=== PATIENT | female | born 1995 | race Hispanic/Latino ===

== ENCOUNTER 2018-09-11 06:34 | Inpatient (IN) | payer OTHER ==
[2018-09-11] VITALS (22 sets, daily range): BP systolic 120–163; BP diastolic 64–94
[~2018-09-11] VITALS: Ht 157.5 cm; Wt 121.6 kg
[2018-09-11] MEDS ORDERED: OXYTOCIN 30 UNITS IN 0.9% NaCl 500ML IV BAG (J2590) As Ordered ONE (06:59)
[2018-09-11] MEDS ORDERED: LR 1,000 ML IV SCH ×2 (07:27→09:48)
[2018-09-11] MEDS ORDERED: ZANT150T40 PO (07:28)
[2018-09-11] MEDS ORDERED: LR 1,000 ML IV ONE (07:30)
--- NOTE | 2018-09-11 07:42 | HPEPDOC ---
Obstetrical History & Physical General Date of Admission Sep 11, 2018 at 06:34 History of Present Illness +CTXNs. -VB/LOF, +GFM Chief Complaint: Contractions, term Information Provided By: Patient Age: 24 : 2 Term: 1 Livin Care Care: Good Care Dating Final EDC: Sep 17, 2018 Final EDC by: 1st trimester () Past Medical History Past Obstetrical History : Past Obstetrical History: Multigravida Gestation: 40 Type of Delivery: Spontaneous Vaginal Del. 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 Past Medical History Medical History Denies Surgical History: Other (axillary surgery) Family History Significant Family History: No pertinent family hx Social History Marital Status: Family situation: Spouse/partner home Psychosocial History: No pertinent psych hx * Smoker: non-smoker Alcohol: Denies Drugs: denies Abuse Violence Screening Have you been hit/kicked/slapp: No Have you been sexually assault: No Imunizations Tdap status: current Influenza Status: current Allergies Coded Allergies: Penicillins (Verified Allergy, Severe, hives, 09/11/18) Medications Miscellaneous Medications Ranitidine Hcl (Zantac) 150 Mg Tablet, 1 TAB PO Physical Examination Physical Examination GENERAL: Alert and oriented times three. BREAST: . ABDOMEN: Gravid and non-tender to touch. FETUS: Is vertex (VTX) by sterile vaginal examination (SVE), fetus is vertex (VTX) by Reji. HEART RATE: Regular rate and rhythm. LUNGS: Clear to auscultation (CTA). EXTREMITIES: No edema. No clonus. Deep tendon reflexes (DTRs) + . Laboratory Data 24H LABS Laboratory Tests 2 09/11/18 06:40: Serology Scanned Report Hepatitis B Testing Urine Culture: No Growth Pertinent Laboratoy Data Blood Type: O+ RBC Antibody Screen: Negative HIV: Negative Hepatitis B: Negative Hepatitis C: Negative Rapid Plasma Reagin: Nonreactive Rubella: Immune Varicella: Immune Chlamydia/Gonorrhea: Negative Group B Streptococcus: Negative Anatomy Ultrasound Placenta Location: Right Lateral Normal Anatomy: Yes Placenta Previa: No Estimated Weight (grams): 3326 Steroid Therapy Steroid Therapy: No Vaginal Examination Dilation: 7 cm Effacement: 90% Station: +1 Cervical Consistency: Soft Presentation: Cephalic presentation Assessment Variability: Moderate Accelerations: Positive Decelerations: None Tocometer Contractions: Yes Frequency: regular Strength: palpated as strong Assessment/Plan Assessment Pt is a 23-year-old (G)2para (P)1001 at 39 weeks by a 1st trimester ultrasound. Presents to Labor and Delivery (L&D) in active labor. Plan Admit and orient. 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 Diet: clears. Group B Streptococcus (GBS) negative. Labs and intravenous (IV) per unit protocol. Counseled on Pitocin and induction of labor (IOL). Lactated Ringers (LR): Bolus 1000 mL, then at 125 mL/hr. Anticipate normal spontaneous delivery (). C-S as appropriate. ELEANOR REED MD Sep 11, 2018 07:33
[2018-09-11] MEDS ORDERED: FENTANYL 2MCG/ML ROPIVACAINE 0.2% IN 0.9% NACL 100ML IVBAG As Ordered ONE (07:44)
[2018-09-11 07:49] LABS: HEMATOCRIT 33.9 % (36.0-47.0); MEAN CORPUSCULAR HEMOGLOBIN 28.5 pg (27.0-33.0); MEAN CORPUSCULAR HGB CONC 32.4 g/dl (32.0-36.5); MEAN CORPUSCULAR VOLUME 87.8 fl (80.0-96.0); PLATELET COUNT, AUTOMATED 340 10^3/uL (150-450); RED BLOOD COUNT 3.86 10^6/uL (4.00-5.40); WHITE BLOOD COUNT 17.7 10^3/uL (4.0-10.0)
[2018-09-11] MEDS ORDERED: diphenhydrAMINE INJ 50MG/ML VIAL (J1200) IV PRN (08:00)
[2018-09-11] MEDS ORDERED: EPIDURAL/PCA KEYS XX PRN (08:00)
[2018-09-11] MEDS ORDERED: NALOXONE INJ 0.4 MG/1 ML VIAL (J2310) IV PRN (08:00)
[2018-09-11] MEDS ORDERED: EPIDURAL COMMENT XX SCH (08:00)
[2018-09-11] MEDS ORDERED: LACTATED RINGER'S 1000 ML IV PRN (08:00)
[2018-09-11] MEDS ORDERED: FENTANYL/ROPIVACAINE/NACL BAG 100 ML EPIDURAL SCH (08:00)
[2018-09-11] MEDS ORDERED: ePHEDrine SULFATE 25 MG/5 ML(5MG/ML) SYRINGE IV PRN (08:00)
[2018-09-11] MEDS ORDERED: ONDANSETRON 4MG/2ML VIAL (J2405) IV PRN (08:00)
[2018-09-11] MEDS ORDERED: REFRIGERATOR IV KEYS XX PRN (08:00)
[2018-09-11] MEDS: PRENATAL VITAMINS CHEWABLE TABLET PO SCH (09:00)
[2018-09-11] MEDS ORDERED: OXYTOCIN DRIP 30 UNITS in APPROPRIATE DILUENT 1 EA IV SCH (09:48)
[2018-09-11] MEDS ORDERED: DOCUSATE SODIUM 100 MG CAP PO PRN (10:00)
[2018-09-11] MEDS ORDERED: MEASLES,MUMPS,RUBELLA VACCINE INJ (MMR-II) (90707) SC SCH (10:00)
[2018-09-11] MEDS ORDERED: IBUPROFEN 600 MG TAB PO PRN (10:00)
[2018-09-11] MEDS ORDERED: ACETAMINOPHEN 500 MG TAB PO PRN (10:00)
[2018-09-11] MEDS ORDERED: ACETAMINOPHEN TAB 650MG DOSE (2X325MG) PO PRN (10:00)
[2018-09-11] MEDS ORDERED: IBUPROFEN 800 MG TAB PO PRN (10:00)
--- NOTE | 2018-09-11 10:03 | DNPDOC ---
[facility] Delivery Note Delivery Note DATE OF DELIVERY: 11 September 2017 PREDELIVERY DIAGNOSIS: 39+1wks gestation and admitted in active labor. POST DELIVERY DIAGNOSIS: Delivered. PROCEDURE: Uncomplicated , intact, placenta intact. 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 DELIVERY SUMMARY: Called to room for pt feeling rectal pressure and urge to push. Fetus noted to have category II FHT via FSE d/t consistent variables with contractions; moderate variaiblity. Dr. Powell on standby d/t risk of shoulder dystocia. Exam revealed C/C/+2. Pt prepped for imminent delivery. Upon pushing, head crowned and FSE removed; head delivered ANUPAMA and restituted to LOT. Nuchal cord x1, loose, but unable to reduce at perineum. Pt repositioned to supine to allow pelvis to further open, Right anterior shoulder delivered with ease, followed by left posterior shoulder, then remainder of corpus delivered, nuchal cord reduced via somersault, and placed on maternal abdomen where he was dried and stimulated; strong, lusty cry. Once cord stopped pulsing, clamped x2 and cut by FOB. Cord blood collected for type and rosa. Placenta delivered spontaneously and appeared intact, 3VC. Pitocin bolus started; fundus firm; EBL 200mL. Upon inspection of perineum, vagina and cervix, all intact. Family unit bonding well; anticipate uncomplicated PP course. Patient is a 23year-old 2 now para 2001 who was admitted to labor and delivery for active labor on [id number], no s/p uncomplicated . CHANEL PURVIS CNM Sep 11, 2018 10:03
[2018-09-11 11:14] LABS: ALT/SGPT 43 U/L (12-78); BILIRUBIN,TOTAL 0.8 MG/DL (0.2-1.0); CREATININE FOR GFR 0.71 MG/DL (0.55-1.30); GLOMERULAR FILTRATION RATE > 60.0 (>60); LDH LACTATE DEHYDROGENASE 205 U/L (84-246)
[2018-09-12 05:47] VITALS: BP 122/69
--- NOTE | 2018-09-12 07:31 | NUR ---
PPD#1 S: Doing well w/o complaints. +voids, + ambulation, pain well controlled. O: vss, AF gen: well appearing, NAD ab: soft, nttp, ff ext: neg calf tenderness A/P: PPD#1 s/p - recovering in stable condition -continue routine -discharge plans for tomorrow Delores Stubbs MD
[2018-09-12] MEDS: PRENATAL VITAMINS CHEWABLE TABLET PO SCH (09:00)
[2018-09-12] MEDS ORDERED: IBUP80TA PO (09:37)
[2018-09-12] MEDS ORDERED: ACET1TAB55 PO (09:37)
--- NOTE | 2018-09-12 09:40 | DS.PDOC ---
Discharge Summary General Date of Admission Sep 11, 2018 at 06:34 Date of Discharge September 12, 2018 Discharge Summary HOSPITAL COURSE: Ms. Brewster is a 23 yo G2 now P2 who underwent an uncomplicated on 11Sep2018 after being admitted for active labor. Her course has been unremarkable. On her day of discharge she was meeting all appropriate discharge criteria. She was ambulating, voiding, tolerating a regular diet, and had minimal lochia. DISCHARGE MEDICATIONS: Please see below. ALLERGIES: Please see below. PHYSICAL EXAMINATION ON DISCHARGE: VITAL SIGNS: Please see below. GENERAL: AAOX3, pleasant and conversant, NAD ABDOMINAL EXAMINATION: Fundus firm at U-2. No fundal tenderness EXTREMITIES: No edema PSYCHIATRIC EXAMINATION: Affect appropriate LABORATORY DATA: Please see below. ACTIVITY: Pelvic rest for 6 weeks. DIET: Regular DISCHARGE PLAN: Discharge home DISPOSITION: Discharge home on 12Sep2018. DISCHARGE INSTRUCTIONS: 1. Pelvic rest for 6 weeks ITEMS TO FOLLOWUP ON ON OUTPATIENT: 1. appt in 6 weeks DISCHARGE CONDITION: Stable. TIME SPENT ON DISCHARGE: Greater than 20 minutes. Isabel Phan DO Vital Signs/I&Os Vital Signs Date Time Temp Pulse Resp B/P (MAP) Pulse Ox O2 Delivery O2 Flow Rate FiO2 09/12/18 05:47 98.1 95 18 122/69 (86) I&O- Last 24 Hours up to 6 AM 09/12/18 05:59 Intake Total 1000 ml Output Total 1100 ml Balance -100 ml Discharge Medications Scheduled PRN Acetaminophen (Acetaminophen) 325 Mg Tablet, 650 MG PO Q4HP PRN for PAIN SCALE 1-5 Ibuprofen (Ibuprofen) 800 Mg Tablet, 800 MG PO Q8HP PRN for PAIN SCALE 6-10 Miscellaneous Medications Ranitidine Hcl (Zantac) 150 Mg Tablet, 1 TAB PO, (Reported) Allergies Coded Allergies: Penicillins (Verified Allergy, Severe, hives, 09/11/18) ISABEL PHAN DO Sep 12, 2018 09:40
== END 2018-09-12 16:40 | disposition home or self-care (01) | DRG 807 ==
LOC: M LDI 06:34 → M OBS 12:55
PROVIDERS: ADMIT Specialist; ATTEND Registered Nurse Maternal Newborn
PROC: 10E0XZZ Delivery of Products of Conception, External Approach (ICD-10-PCS; principal; 2018-09-11)
DX: O69.81X0 Labor and delivery complicated by cord around neck, without compression, not applicable or unspecified (principal); Z37.0 Single live birth; Z3A.39 39 weeks gestation of pregnancy

== ENCOUNTER → 2018-10-26 | Outpatient (CLI) | payer OTHER ==
[~2018-10-26] MED LIST: ACET1TAB55 PO; IBUP80TA PO; ZANT150T40 PO
--- NOTE | 2018-10-26 14:50 | REP ---
RIGHT BREAST ULTRASOUND: Real-time sonographic evaluation of the right breast performed. There is a family history of a sister with breast cancer at age 30 as well as two aunts with breast cancer. Reportedly, there is a palpable lump near the nipple at 7-o'clock position. Ultrasound of that area demonstrates a mildly heterogeneous hypoechoic nodule, with somewhat irregular margins. There is internal blood flow with Doppler evaluation. It measures 2.2 x 1.2 x 2.4 cm. This cannot definitely be characterized as benign. I recommend ultrasound-guided biopsy. IMPRESSION: BIRADS 4: BI-RADS/ACR category 4 mammogram. Suspicious Abnormality - biopsy should be considered. ACR 4 suspicious. Somewhat irregular heterogeneously hypoechoic solid nodule right breast, 7-o'clock position at the site of the palpable lump, measuring 2.2 x 1.2 x 2.4 cm. Recommend ultrasound-guided biopsy. Electronically Signed by Frank Clemente MD 10/27/2018 09:43 A
== END ==
LOC: M RAD 12:46
PROVIDERS: ATTEND Obstetrics & Gynecology
DX: N63.10 Unspecified lump in the right breast, unspecified quadrant (principal)

== ENCOUNTER 2019-04-07 12:15 | Emergency (ER) | payer OTHER ==
[~2019-04-07] VITALS: Ht 157.5 cm; Wt 115.0 kg
[2019-04-07 14:59] VITALS: BP 132/83
== END 2019-04-07 15:00 | disposition home or self-care (01) ==
LOC: M ED 12:15
DX: F43.20 Adjustment disorder, unspecified (principal); Z88.0 Allergy status to penicillin

== ENCOUNTER 2019-05-19 16:56 | Emergency (ER) | payer OTHER ==
[~2019-05-19] VITALS: Ht 157.5 cm; Wt 120.9 kg
[2019-05-19 16:56] VITALS: BP 136/71
[2019-05-19 18:01] LABS: BASO % 0.2 % (0.0-1.0); EOS % 0.2 % (0.0-3.0); HEMATOCRIT 35.1 % (36.0-47.0); HEMOGLOBIN 11.6 g/dl (12.0-15.5); LYMPH # 2.2 10^3/uL (1.5-5.0); LYMPH % 17.2 % (24.0-44.0); MEAN CORPUSCULAR HEMOGLOBIN 28.5 pg (27.0-33.0); MEAN CORPUSCULAR VOLUME 86.2 fl (80.0-96.0); MONO # 0.7 10^3/uL (0.0-0.8); MONO % 5.1 % (0.0-5.0); NEUTROPHILS # 9.8 10^3/uL (1.5-8.5); NEUTROPHILS % 76.4 % (36.0-66.0); PLATELET COUNT, AUTOMATED 330 10^3/uL (150-450); RED BLOOD COUNT 4.07 10^6/uL (4.00-5.40); WHITE BLOOD COUNT 12.9 10^3/uL (4.0-10.0)
[2019-05-19 18:12] LABS: INR 1.04; PROTHROMBIN TIME 13.3 SECONDS (11.8-14.0)
[2019-05-19 18:13] LABS: PARTIAL THROMBOPLASTIN TIME 26.2 SECONDS (25.0-38.4)
--- NOTE | 2019-05-19 18:22 | REPVR ---
PROCEDURE INFORMATION: Exam: US Duplex Right Lower Extremity Veins, Limited Exam date and time: 05/19/2019 6:12 PM Age: 24 years old Clinical indication: Pain; Other: RT knee; Additional info: Pain and swelling to knee R/O dvt TECHNIQUE: Imaging protocol: Real-time Duplex ultrasound of the Right Lower Extremity with 2-D meade scale, color Doppler flow and spectral waveform analysis with image documentation. Limited exam was focused on the right lower extremity veins. COMPARISON: No relevant prior studies available. FINDINGS: Right deep veins: Unremarkable. The common femoral, femoral, proximal profunda femoral and popliteal veins are patent without thrombus. Normal Doppler waveforms. Normal compressibility and/or augmentation response. Right superficial veins: Unremarkable. Saphenofemoral junction is patent without thrombus. IMPRESSION: No acute findings. No evidence of deep vein thrombosis. Electronically signed by: Sultana Richardson On 05/19/2019 18:21:45 PM
[2019-05-19 18:25] LABS: BLOOD UREA NITROGEN 6 MG/DL (7-18); C REACTIVE PROTEIN QUANTITATIV 2.91 MG/DL (0.00-0.30); CALCIUM LEVEL 9.2 MG/DL (8.5-10.1); CARBON DIOXIDE LEVEL 26 MEQ/L (21-32); CHLORIDE LEVEL 104 MEQ/L (98-107); CREATININE FOR GFR 0.62 MG/DL (0.55-1.30); GLOMERULAR FILTRATION RATE > 60.0 (>60); GLUCOSE, FASTING 81 MG/DL (70-100); POTASSIUM SERUM 4.1 MEQ/L (3.5-5.1); SODIUM LEVEL 134 MEQ/L (136-145)
[2019-05-19 18:44] LABS: ERYTHROCYTE SEDIMENTATION RATE 70 mm/hr (0-20)
--- NOTE | 2019-05-19 19:50 | REP ---
RIGHT KNEE, TWO VIEWS: FINDINGS: There is no evidence of an acute fracture, dislocation or intrinsic bone disease. IMPRESSION: No fracture or dislocation. Electronically Signed by Frank Clemente MD 05/19/2019 11:28 P
== END 2019-05-19 19:40 | disposition home or self-care (01) ==
LOC: M ED 17:52
DX: O9A.211 Injury, poisoning and certain other consequences of external causes complicating pregnancy, first trimester (principal); M25.561 Pain in right knee; X58.XXXA Exposure to other specified factors, initial encounter; Y92.9 Unspecified place or not applicable; Y93.9 Activity, unspecified; Z88.0 Allergy status to penicillin

== ENCOUNTER 2019-12-19 01:37 | Inpatient (IN) | payer OTHER ==
[2019-12-19] VITALS (40 sets, daily range): BP systolic 70–149; BP diastolic 35–84
[~2019-12-19] VITALS: Ht 160 cm; Wt 125.8 kg
[2019-12-19 02:38] LABS: HEMATOCRIT 31.7 % (36.0-47.0); HEMOGLOBIN 10.3 g/dl (12.0-15.5); MEAN CORPUSCULAR HEMOGLOBIN 28.7 pg (27.0-33.0); MEAN CORPUSCULAR HGB CONC 32.5 g/dl (32.0-36.5); MEAN CORPUSCULAR VOLUME 88.3 fl (80.0-96.0); PLATELET COUNT, AUTOMATED 263 10^3/uL (150-450); RED BLOOD COUNT 3.59 10^6/uL (4.00-5.40)
[2019-12-19] MEDS ORDERED: PRENTAB9 PO (02:39)
[2019-12-19] MEDS ORDERED: OXYTOCIN 30 UNITS IN 0.9% NaCl 500ML IV BAG (J2590) As Ordered ONE ×2 (02:58→19:08)
--- NOTE | 2019-12-19 03:22 | HPEPDOC ---
Obstetrical History & Physical General Date of Admission Dec 19, 2019 at 01:37 History of Present Illness 24yo at 39+5ks presenting for IOL for BMI>40. Denies VB, LOF, DFM, or regular ctx's. 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 Past Medical History Medical History Morbid obesity Surgical History: Other (Sweat gland removal) Family History Significant Family History: Asthma, Cancer (breast ), Diabetes, Hypertension Social History Marital Status: Family situation: Spouse/partner home Psychosocial History: No pertinent psych hx * Smoker: non-smoker Alcohol: Denies Drugs: denies Abuse Violence Screening Have you been hit/kicked/slapp: No Have you been sexually assault: No Imunizations Tdap status: current ([id number]) Allergies Coded Allergies: Penicillins (Verified Allergy, Severe, hives, 09/11/18) Medications Scheduled No.137/Iron/Folic Acd ( Vitamin Tablet) 1 Each Tablet, 1 TAB PO DAILY Physical Examination Physical Examination GENERAL: Alert and oriented times three. ABDOMEN: Gravid and non-tender to touch. Obese. FETUS: Is vertex (VTX) by sterile vaginal examination (SVE), fetus is vertex (VTX) by Reji. CARDS: well-perfused RESP: no exaggerated respiratory effort, no cough. EXTREMITIES: No edema. : NEFG, no abnml vaginal discharge, no VB, no lesions seen, no pooling. Cervix 4/70/-3 Vital Signs/I&O Vital Signs Date Time Temp Pulse Resp B/P (MAP) Pulse Ox O2 Delivery O2 Flow Rate FiO2 12/19/19 02:30 97.6 Laboratory Data 24H LABS Laboratory Tests 2 12/19/19 01:47: Serology Scanned Report Hepatitis B Testing 12/19/19 02:25: Nucleated Red Blood Cells % (auto) 0.0 CBC/BMP Laboratory Tests 12/19/19 02:25 Urine Culture: No Growth Pertinent Laboratoy Data Blood Type: O+ RBC Antibody Screen: Negative HIV: Negative Hepatitis B: Negative Rapid Plasma Reagin: Nonreactive Rubella: Immune Varicella: Immune Chlamydia/Gonorrhea: Negative Group B Streptococcus: Negative (12/01/2019) Quad Screen Test: Declined Cystic Fibrosis: Negative Glucose Tolerance Test: 110 Anatomy Ultrasound Ultrasound Date: Aug 04, 2019 Placenta Location: Posterior Normal Anatomy: Yes Placenta Previa: No Other Ultrasounds Growth scan on [id number] - 64th percentile Vaginal Examination Dilation: 4 cm Effacement: 70% Station: -3 Cervical Consistency: Soft Cervical Position: Posterior Presentation: Cephalic presentation Assessment Heart Rate (FHR): 140 Variability: Moderate Accelerations: Positive Decelerations: None Tocometer Contractions: Yes Frequency: every 3-7 min. Multi-drug resistant Organism: No history of MDRO Assessment/Plan Assessment 24yo at 39+5wks presenting for IOL for BMI>40. GBS neg. EFW 3400g. Me mbrane intact. SVE /-3. Plan Admit and orient. 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 Diet: clears. Group B Streptococcus (GBS) negative. Labs and intravenous (IV) per unit protocol. Counseled on Pitocin and induction of labor (IOL). Lactated Ringers (LR): Bolus 500mL at time of epidural, then at 125 mL/hr. Patient may have stadol/phenergan as requested for IV pain meds but counseled if >8cm would not recommend due to risk of respiratory depression, counseled epidural also available if she desires. Continuous EFM, may internalize if indicated. Anticipate normal spontaneous delivery (). C-S as appropriate. ABEL MATAMOROS DO Dec 19, 2019 03:22
--- NOTE | 2019-12-19 08:50 | IPNPDOC ---
Obstetrical Progress Note Date of Service Dec 19, 2019 Subjective 24 yo at 39w5d admitted for IOL for morbid obesity. She has no complaints at this time. She has supportive family at the bedside. She is breathing well through her contractions. Objective Vital Signs Date Time Temp Pulse Resp B/P (MAP) Pulse Ox O2 Delivery O2 Flow Rate FiO2 12/19/19 07:41 97 20 124/62 (82) 12/19/19 07:23 97.3 99 Room Air Assessment Heart Rate (FHR): 135 Variability: Moderate Accelerations: Present Decelerations: None Heart Rate Tracing: Category I Tocometer Contractions: Yes Frequency: regular Duration: other (every 5 minutes) Sterile Vaginal Examination Dilation: 6 cm Effacement (%): 60% Station: -3 ( head is ballotable ) Cervical Consistency: Soft Postion/Presentation: Cephalic presentation Assessment and Plan Age: 24 : 3 Term: 2 Pre-term: 0 Abortions: 0 Livin EGA at Admission: 39 (+4) Weeks & Days 39w5d Status: Reassuring Group B Streptococcus: Negative Anticipate: Vaginal Delivery Additional Comments Plan to continue laboring with Pitocin and reassess in 3-4 hours and consider AROM if the head is well applied to the cervix. BARRETT MARIA CNM Dec 19, 2019 08:50
--- NOTE | 2019-12-19 14:25 | IPNPDOC ---
Obstetrical Progress Note Date of Service Dec 19, 2019 Subjective 24 yo at 39w5d admitted for IOL for morbid obesity. She is coping well with her contractions. She has supportive family at the bedside. Objective Vital Signs Date Time Temp Pulse Resp B/P (MAP) Pulse Ox O2 Delivery O2 Flow Rate FiO2 12/19/19 13:46 71 16 107/59 (75) 12/19/19 11:46 97.1 100 Room Air AROM for clear fluid Assessment Heart Rate (FHR): 145 Variability: Moderate Accelerations: None Decelerations: Variable Tocometer Contractions: Yes Frequency: every 3-7 min. Sterile Vaginal Examination Dilation: 7 cm (7-8) Effacement (%): 80% Station: -1, 0 Postion/Presentation: Cephalic presentation Assessment and Plan Age: 24 : 3 Term: 2 Pre-term: 0 Abortions: 0 Livin EGA at Admission: 39 (+5) Weeks & Days 39w5d Status: Reassuring Group B Streptococcus: Negative Anticipate: Vaginal Delivery BARRETT MARIA CNM Dec 19, 2019 14:25
[2019-12-19 17:23] LABS: CORD GAS ABE A -0.9; CORD GAS HCO3 A 21.9 MEQ/L; CORD GAS O2 SAT A 87.2 %; CORD GAS PCO2 A 31.6 mmHg; CORD GAS PH A 7.459 UNITS; CORD GAS PO2 A 39.1 mmHg; CORD GAS SBC A 23.4 MEQ/L; CORD GAS TCO2 A 22.9 MEQ/L
[2019-12-19 17:27] LABS: CORD GAS ABE V -2.5; CORD GAS HCO3 V 21.1 MEQ/L; CORD GAS O2 SAT V 92.2 %; CORD GAS PCO2 V 33.1 mmHg; CORD GAS PH V 7.422 UNITS; CORD GAS PO2 V 49.2 mmHg; CORD GAS SBC V 22.3 MEQ/L; CORD GAS TCO2 V 22.1 MEQ/L
[2019-12-19] MEDS ORDERED: RHOGAM 300 MCG (1500 IU) INJ (J2790) IM SCH (17:45)
[2019-12-19] MEDS ORDERED: MOM 30ML SUSPENSION UDC PO PRN (17:45)
[2019-12-19] MEDS ORDERED: MEASLES,MUMPS,RUBELLA VACCINE INJ (MMR-II) (90707) SC SCH (17:45)
[2019-12-19] MEDS ORDERED: ACETAMINOPHEN TAB 650MG DOSE (2X325MG) PO PRN (17:45)
[2019-12-19] MEDS ORDERED: DOCUSATE SODIUM 100 MG CAP PO PRN (17:45)
[2019-12-19] MEDS ORDERED: IBUPROFEN 800 MG TAB PO PRN (17:45)
[2019-12-19] MEDS ORDERED: ACETAMINOPHEN 500 MG TAB PO PRN (17:45)
[2019-12-19] MEDS ORDERED: DIBUCAINE 1% OINTMENT 30GM TOP PRN (17:45)
[2019-12-19] MEDS ORDERED: METHYLERGONOVINE MALEATE 0.2 MG TAB PO PRN (17:45)
[2019-12-19] MEDS ORDERED: IBUPROFEN 600MG TAB PO PRN (17:45)
[2019-12-19] MEDS ORDERED: OXYTOCIN INJ 10 UNITS/ML VIAL (J2590) IV ONE (17:45)
[2019-12-19] MEDS ORDERED: ANUSOL HC CREAM 30GM TOP PRN (17:45)
[2019-12-19] MEDS ORDERED: OXYTOCIN DRIP 30 UNITS in IV 1 EA IV ONE (17:45)
--- NOTE | 2019-12-19 18:02 | DNPDOC ---
[facility] Delivery Note Delivery Note DATE OF DELIVERY: 12/19/2019 PREDELIVERY DIAGNOSIS: 39,5 WEEKS gestation FOR IOL BMI >40 POST DELIVERY DIAGNOSIS: Delivered. PROCEDURE: [Spontaneous vaginal delivery FIRER LOW PRESSURE: Dr. Vaibhav DREW ANESTHESIA: NONE ESTIMATED BLOOD LOSS 200 ML. FINDINGS: 9 pound 1 ounce FEMALE infant, Score 9/9 DELIVERY SUMMARY: Patient is a 24-year-old 3 now para 3who was admitted to labor and delivery for IOL BMI >40 WITH NO ANESTHESIA HAD SPONTANEOUS VAGINAL DELIVERY LIVE FEMALE INFANT 9 LBS 1 OZ 4130 GRAMS 9/9 OVER INTACT PERINEUM . PLACENTA DELIVERED SPONTANEOUSLY CONTRACTED WELL DOWN WITH PITOCIN INSPECTION ANTERIOR POSTERIOR AND LATERAL WILLIAM INTACT SPHINCTER TIGHT. Anjel Drew MD Dec 19, 2019 18:01
[2019-12-20 05:54] VITALS: BP 105/56
[2019-12-20 06:36] LABS: HEMATOCRIT 31.2 % (36.0-47.0); HEMOGLOBIN 10.2 g/dl (12.0-15.5); MEAN CORPUSCULAR HEMOGLOBIN 28.9 pg (27.0-33.0); MEAN CORPUSCULAR HGB CONC 32.7 g/dl (32.0-36.5); MEAN CORPUSCULAR VOLUME 88.4 fl (80.0-96.0); PLATELET COUNT, AUTOMATED 232 10^3/uL (150-450); RED BLOOD COUNT 3.53 10^6/uL (4.00-5.40); WHITE BLOOD COUNT 14.6 10^3/uL (4.0-10.0)
[2019-12-20] MEDS: PRENATAL VITAMINS CHEWABLE TABLET PO SCH (07:54)
--- NOTE | 2019-12-20 12:32 | IPN ---
DAY #1 PROGRESS NOTE DATE: 12/20/2019 This lady is a 24-year-old 3, now para 3, admitted at 39 and 5 weeks of gestation for induction of labor because of BMI of greater than 40. She had a spontaneous vaginal delivery of a female , 9 pounds 1 ounce (4120 grams), Apgars of 9 and 9 at one and five minutes respectively. There was terminal meconium at the time of delivery. The arterial pH was 7.45, base access was - 0.9, venous pH was 7.42, access pH was -2.5. She did not have anything for pain medication. Perineum was intact. We discussed phlebitis, cystitis, mastitis, endometritis, and cellulitis; diet, exercise, pain management, perineal, breast, and wound care. Presently this morning, her blood pressure is 105/56, respirations are 18, pulse 85, temperature is 97.8. She is , doing well, passing gas and voiding. Plans on discharge tomorrow. Medications were dispensed at [place]. She has a six week checkup at [facility]. All questions were answered. ALICIA
[2019-12-20 18:00] VITALS: BP 137/77
[2019-12-21 06:00] VITALS: BP 131/77
--- NOTE | 2019-12-21 07:19 | IPNPDOC ---
Progress Note Date of Service: Dec 21, 2019 Day#: 2 Progress Note SUBJECT: 24-year-old 3, now para 3, admitted at 39 and 5 weeks of gestation for induction of labor because of BMI of greater than 40. She had a spontaneous vaginal delivery of a female , 9 pounds 1 ounce (4120 grams), Apgars of 9 and 9 at one and five minutes respectively, doing well day # 2. She has been ambulating, voiding spontaneously without issue and tolerating regular diet. Breast feeding without issue. Reports lochia is minimal . Patient is ambulating well. Reports some cramping with . Denies any pain. Voiding and stooling without difficulty. Baby in NICU. no SI/HI OBJECTIVE: VITAL SIGNS: Within normal limits, afebrile. Alert and oriented times three. normal work of breathing Heart rate: Regular rate and rhythm, Abdomen: Fundus firm at U-1. Soft, NTTP. ASSESSMENT: 24 yo status post uncomplicated spontaneous vaginal delivery. doing well on day 2. Vitals within normal limits, afebrile, hemodynamically stable with no evidence of infection. [facility]. PLAN: 1. Discharge to home 2. Tylenol and Motrin for pain. 3. Encourage breast feeding and ambulation. 4. Minipill for contraception for now 5. Routine PP visit in 6 weeks in clinic. 6. Discussed return precautions And contraception at length. VS, I&O, 24H, Fishbone Vital Signs/I&O Vital Signs Date Time Temp Pulse Resp B/P (MAP) Pulse Ox O2 Delivery O2 Flow Rate FiO2 12/20/19 18:00 97.0 80 18 137/77 (97) 96 Room Air Laboratory Data 24H LABS Laboratory Tests 2 12/20/19 06:10: Nucleated Red Blood Cells % (auto) 0.0 CBC/BMP Laboratory Tests 12/20/19 06:10 LATOYA POSEY MD Dec 21, 2019 04:50
[2019-12-21] MEDS: PRENATAL VITAMINS CHEWABLE TABLET PO SCH (09:02)
[2019-12-21] MEDS ORDERED: DOCU100C16 PO (12:19)
[2019-12-21] MEDS ORDERED: IBUP80TA PO (12:19)
[2019-12-21] MEDS ORDERED: DIBU10OI TOP (12:19)
--- NOTE | 2019-12-22 07:07 | DS ---
DATE OF ADMISSION: 12/19/2019 DATE OF DISCHARGE: 12/21/2019 A 24-year-old 3, now para 3, admitted for induction of labor because of body mass index (BMI) of 40 at 39 and 5 weeks of gestation. Had a spontaneous vaginal delivery of a female , 9 pounds 1 ounce, 4120 grams, scores of 9 and 9 at one and five minutes, respectively. Terminal meconium was noted. Arterial pH 7.45, base excess -0.9, venous pH 7.42, base excess -2.5. Blood pressure is 131/77, respirations 19, pulse 85, temperature 97.2. Admitting hemoglobin 10.3, hematocrit 31.7, and platelets 263. Discharge hemoglobin 10.2, hematocrit 31.2, platelets 232. The rest of the examination is unremarkable. Normocephalic, atraumatic. Neck: Full range of motion. Pupils equal and reactive to light. Distal pulses are symmetric. No evidence of deep venous thrombosis (DVT), pulmonary embolus (PE), or superficial phlebitis. Chest is clear bilaterally to bases. No wheezes or rhonchi. No costovertebral angle (CVA) tenderness. Abdomen is soft. Four-quadrant bowel sounds are noted. Perineum is intact and healing. No rashes, lesions or pruritus. No arthralgia or myalgia. No complaint of joint pain. No complaints of cough, wheeze, shortness of breath, or dyspnea on exertion. No nausea, vomiting, diarrhea, or constipation. No urgency or frequency. Patient is discharged today. Followup for 6-week at [facility]. 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 Patient was discharged improved. All questions were answered. A 20-minute discussion. [facility] HOSPITALJerry
== END 2019-12-21 12:30 | disposition home or self-care (01) | DRG 807 ==
LOC: EEVIPCON 01:37 → M LDI 01:37 → M OBS 19:31
PROVIDERS: ATTEND Obstetrics & Gynecology
PROC: 10E0XZZ Delivery of Products of Conception, External Approach (ICD-10-PCS; principal; 2019-12-19)
PROC: 3E033VJ Introduction of Other Hormone into Peripheral Vein, Percutaneous Approach (ICD-10-PCS; 2019-12-19)
DX: O99.214 Obesity complicating childbirth (principal); Z37.0 Single live birth; E66.01 Morbid (severe) obesity due to excess calories; Z3A.39 39 weeks gestation of pregnancy

== ENCOUNTER 2020-02-07 15:16 | Emergency (ER) | payer OTHER ==
[~2020-02-07] VITALS: Ht 160 cm; Wt 121.8 kg
[~2020-02-07 15:16] MED LIST changes: +DIBU10OI TOP; +DOCU100C16 PO; +PRENTAB9 PO
[2020-02-07] MEDS ORDERED: MICR1TAB16 PO (15:30)
--- NOTE | 2020-02-07 15:52 | REP ---
INDICATION: fall/bony tenderness to cervical spine COMPARISON: None. TECHNIQUE: Axial noncontrast images from the skull base to the vertex with coronal reformations. This CT examination was performed using the following dose reduction techniques: Automated exposure control, adjustment of mA and/or kv according to the patient's size, and use of iterative reconstruction technique. FINDINGS: The ventricles, sulci, and cisterns are normal in position and appearance. Clemente-white differentiation is maintained. No acute intracranial hemorrhage, mass/mass effect, pathology or trauma/injury. No evidence for acute infarction. No extra-axial fluid collection. Calvarium is intact. Paranasal sinuses and mastoid air cells are clear. IMPRESSION: Normal noncontrast head CT. No evidence for acute intracranial pathology or trauma/injury. <Electronically signed by Maged Mitchell > 02/07/20 [id number]
--- NOTE | 2020-02-07 15:53 | REP ---
INDICATION: fall/bony tenderness to cervical spine COMPARISON: None. TECHNIQUE: Axial noncontrast images from the skull base to the thoracic inlet with coronal and sagittal re-formations This CT examination was performed using the following dose reduction techniques: Automated exposure control, adjustment of mA and/or kv according to the patient's size, and use of iterative reconstruction technique. FINDINGS: Normal alignment is maintained. Cervical vertebral bodies including transverse processes and spinous processes are intact and there is no evidence for acute fracture / compression injury or subluxation. Spinal canal is patent. Posterior elements are intact. Paravertebral soft tissues are normal. IMPRESSION: Normal noncontrast cervical spine CT. No evidence for acute pathology or trauma/injury. <Electronically signed by Maged Mitchell > 02/07/20 [id number]
[2020-02-07] MEDS ORDERED: ONDANSETRON 4 MG ORAL DISINTEGRATING TAB PO ONE (16:00)
[2020-02-07] MEDS ORDERED: KETOROLAC 60MG 2ML VIAL IM ONE (16:00)
[2020-02-07] MEDS ORDERED: ONDA4TAB6 PO (16:44)
[2020-02-07] MEDS ORDERED: ACETAMINOPHEN 325 MG TAB PO ONE (16:45)
[2020-02-07 17:00] VITALS: BP 128/67
== END 2020-02-07 17:05 | disposition home or self-care (01) ==
LOC: M ED 15:16
DX: S16.1XXA Strain of muscle, fascia and tendon at neck level, initial encounter (principal); S09.90XA Unspecified injury of head, initial encounter; W00.0XXA Fall on same level due to ice and snow, initial encounter; Y92.410 Unspecified street and highway as the place of occurrence of the external cause; Y93.89 Activity, other specified; Y99.8 Other external cause status; Z79.3 Long term (current) use of hormonal contraceptives; Z88.0 Allergy status to penicillin
CPT/HCPCS: 70450; 72125; 96372; 99284; J1885; Q0162